=== PATIENT | male | born 1980 | race Two or more races ===

== ENCOUNTER 2022-08-02 17:14 | Emergency (ER) | payer SELFPAY ==
[~2022-08-02] VITALS: Ht 185.4 cm; Wt 115.0 kg
[2022-08-02] MEDS ORDERED: methylPREDNISolone SOD SUCC 125 MG/2 ML VL IM ONE (17:45)
[2022-08-02] MEDS ORDERED: KETOROLAC TROMETH 30 MG/ML 1ML VIAL IM ONE (17:45)
[2022-08-02] MEDS ORDERED: IBUP800T26 PO (19:08)
[2022-08-02] MEDS ORDERED: CYCL-837 PO (19:08)
[2022-08-02 19:23] VITALS: BP 129/69
== END 2022-08-02 19:25 | disposition home or self-care (01) ==
LOC: ER 17:14
DX: S33.5XXA Sprain of ligaments of lumbar spine, initial encounter (principal); M54.59 Other low back pain; X58.XXXA Exposure to other specified factors, initial encounter; Y93.89 Activity, other specified; Y92.89 Other specified places as the place of occurrence of the external cause; Y99.8 Other external cause status
CPT/HCPCS: 72100; 96372; 99284; J1885; J2930